=== PATIENT | female | born 1970 ===

== ENCOUNTER 2020-10-15 08:57 | Day surgery (SDC) | payer OTHER ==
[~2020-10-15 08:57] MED LIST: PEPCID PO; PRILOSEC PO
== END 2020-10-15 17:40 | disposition home or self-care (01) ==
LOC: CIR.AMB 08:57
PROVIDERS: ATTEND Obstetrics & Gynecology
DX: N84.0 Polyp of corpus uteri (principal); Z20.822 Contact with and (suspected) exposure to COVID-19